=== PATIENT | female | born 1990 | race Caucasian/White ===

== ENCOUNTER → 2017-01-01 | Outpatient (CLI) | payer BC ==
[~2017-01-01] MED LIST: ACET-1256 PO; CETI10TA84 PO; FRRS300 PO; GADAVIST IV PRN; PRENTAB26 PO
--- NOTE | 2017-01-01 10:56 | DIAGNOSTIC IMAGING REPORT ---
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 COMPARISON STUDY: None. FINDINGS: There are no areas of restricted diffusion to suggest acute infarction. The midline structures are intact. A few small retention cysts within the left maxillary sinus. The ventricles and sulci are within normal limits for age. There is no mass, hematoma, midline shift. The major vascular flow-voids at the skull base are well maintained. Postcontrast sequences show no areas of abnormal enhancement. Normal bilateral internal auditory canals. The right mastoid air cells are clear. No evidence for inner ear dysplasia. The 7th and 8th cranial nerves are normal and course and caliber. There is complete opacification of the left mastoid air cells and left middle ear cavity. These are filled with fluid. There is associated enhancement. No bony destruction by MRI. There is no extension into the intracranial location. No surrounding soft tissue edema. IMPRESSION: 1. No acute intracranial abnormality. 2. Normal bilateral internal auditory canals. 3. Complete opacification of the left mastoid air cells and left middle ear cavity which are fluid-filled. These also demonstrate enhancement. Therefore, this favors an otitis media with associated mastoid effusion. The mastoid effusion raises the possibility of a non-coalescing mastoiditis given the lack of bony erosion and surrounding inflammatory change. In addition, an underlying cholesteatoma could also result in a similar appearance. Clinical correlation recommended. Electronically signed by: Ted Steward M.D. 01/01/2017 10:54 AM Dictated Date/Time: 01/01/2017 10:39 AM
== END | disposition home or self-care (01) ==
LOC: C.MRI 09:34
PROVIDERS: ATTEND Physician Assistant
DX: H90.72 Mixed conductive and sensorineural hearing loss, unilateral, left ear, with unrestricted hearing on the contralateral side (principal); R93.0 Abnormal findings on diagnostic imaging of skull and head, not elsewhere classified

== ENCOUNTER → 2018-04-29 | Outpatient (CLI) | payer OTHER ==
[~2018-04-29] MED LIST changes: -GADAVIST IV PRN
== END | disposition home or self-care (01) ==
LOC: C.LAB1850 09:16
PROVIDERS: ATTEND Obstetrics & Gynecology
DX: Z34.82 Encounter for supervision of other normal pregnancy, second trimester (principal)

== ENCOUNTER 2018-10-10 01:16 | Inpatient (IN) ==
[2018-10-10] MEDS ORDERED: OXYTOCIN 30 UNITS/500 ML BAG IV PRN ×2 (01:48→06:28)
[2018-10-10] MEDS ORDERED: LACTATED RINGER'S 1,000 ML IV PRN ×2 (01:48→03:09)
[2018-10-10] MEDS ORDERED: fentaNYL citrate 100 MCG/2 ML VIAL ONE (01:54)
[2018-10-10] MEDS ORDERED: ePHEDrine sulfate 50 MG/ML AMP ONE (01:54)
[2018-10-10] MEDS ORDERED: BUPIVACAINE 0.25% 30 ML VIAL ONE (01:54)
[2018-10-10] MEDS ORDERED: fentaNYL 2MCG/ML ROPIV 1.25MG/ML 100 ML BAG EPI ONE (01:55)
[2018-10-10] MEDS ORDERED: LACTATED RINGER'S 1,000 ML IV SCH (02:00)
[2018-10-10 02:54] LABS: Hematocrit (blood only) 36.5 % (37-47); Hemoglobin 12.5 g/dL (12.0-16.0); Mean Corpuscular Volume 88.6 fL (80-100); Mean Platelet Volume 10.1 fL (7.4-10.4); Platelet Count 196 K/uL (130-400); RDW Coefficient of Variation 13.3 % (11.5-14.5); Red Blood Count 4.12 M/uL (4.2-5.4); White Blood Count 16.37 K/uL (4.8-10.8)
[2018-10-10 02:56] LABS: Mean Corpuscular Hgb Conc 34.2 g/dL (32-36)
[2018-10-10] MEDS ORDERED: NALBUPHINE HCL INJ 10 MG/ML AMP IV PRN (03:09)
[2018-10-10] MEDS ORDERED: ONDANSETRON INJ 2 MG/ML 2 ML VIAL IV PRN (03:09)
[2018-10-10] MEDS ORDERED: fentaNYL 2MCG/ML ROPIV 1.25MG/ML 100 ML BAG EPI PRN (03:09)
[2018-10-10] MEDS ORDERED: NALOXONE HCL 0.4 MG/1 ML VIAL/CARP IV PRN (03:09)
[2018-10-10] MEDS ORDERED: NALOXONE HCL 1 MG in SODIUM CHLORIDE 0.9% 1000ML 1,000 ML IV PRN (03:09)
[2018-10-10] MEDS ORDERED: DiphenhydrAMINE HCL 50 MG/ML VIAL IV PRN (03:09)
[2018-10-10] MEDS ORDERED: ePHEDrine sulfate 50 MG/ML AMP IV PRN (03:09)
[2018-10-10] MEDS ORDERED: OXYCODONE/ACETAMINOPHEN 5mg/325mg TAB PO PRN (06:28)
[2018-10-10] MEDS ORDERED: SUPERCREAM 0.870% 15 GM JAR EXT PRN (06:28)
[2018-10-10] MEDS ORDERED: DIPHTHERIA/TETANUS/PERTUSSIS 0.5 ML SYR/VIAL IM ONE (06:28)
[2018-10-10] MEDS ORDERED: ACETAMINOPHEN 325 MG TAB PO PRN (06:28)
[2018-10-10] MEDS ORDERED: BENZOCAINE 20% AER SPR 82.5 GM CAN EXT PRN (06:28)
[2018-10-10] MEDS ORDERED: HYDROCORTISONE ACETATE 25 MG SUPP PR PRN (06:28)
[2018-10-10] MEDS ORDERED: BISACODYL 10 MG SUPP PR PRN (06:28)
[2018-10-10 06:53] LABS: Base Excess Cord Arterial Bld 0.3 mEq/L (-9-1.8); CO2 Cord Arterial Blood 51 mmHg (39.1-73.5); HCO3 Cord Arterial Blood 27 mmol/L (19.7-28.5); pH Cord Arterial Blood 7.34 (7.1-7.38)
[2018-10-10 06:57] LABS: Cord Venous Blood HCO3 26 mmol/L (18.4-26.8); Cord Venous Blood PCO2 47 mmHg (30.4-57.2); Cord Venous Blood PO2 33 mmHg (14.1-43.3); Cord Venous Blood pH 7.36 (7.20-7.44)
--- NOTE | 2018-10-10 07:16 | Delivery Summary ---
DATE OF OPERATION: 10/10/2018 VAGINAL DELIVERY NOTE Trinity presented in active labor at 6 cm, group B strep negative, second baby, uncomplicated . heart rate category 1 requested epidural. She then progressed to fully dilated. AROM was performed for clear fluid. She pushed over a few contractions and delivered a baby in occiput anterior position. Mouth and then nares suctioned. Baby delivered by gentle traction, no excessive force. Live vigorous female infant. Cord clamped and cut. Cord gases obtained. Cord blood obtained. Placenta removed with traction and IV Pitocin started for uterine tone. Second-degree tear repaired with 3-0 Vicryl. Sponge and instrument counts correct. Bleeding minimal at the end of delivery, rectal exam negative for sutures or defects. I attest to the content of the Intraoperative Record and any orders documented therein. Any exception s are noted below.
[2018-10-10] MEDS: PRENATAL VITAMIN 1 TAB PO SCH (08:13)
[2018-10-10] MEDS: DOCUSATE SODIUM 100 MG CAP PO SCH ×2 (08:13→22:06)
[2018-10-10] MEDS: CALCIUM CARBONATE 500 MG CHEWABLE TAB PO SCH ×2 (08:13→22:06)
--- NOTE | 2018-10-10 08:21 | Anesthesia Procedure Note ---
Date of Service October 10, 2018 Anesthesia Post Epidural Note Vital Signs Vital Signs: Temp Pulse Resp BP Pulse Ox 10/10/18 08:11 81 101/64 10/10/18 08:10 20 10/10/18 07:56 80 101/58 L 10/10/18 07:40 88 20 106/57 L 10/10/18 07:25 67 20 101/56 L 10/10/18 07:10 70 20 112/58 L 10/10/18 06:55 74 20 107/58 L 10/10/18 06:40 78 113/60 10/10/18 06:25 82 18 116/61 10/10/18 06:22 73 100 10/10/18 06:17 84 99 10/10/18 06:12 111 H 74 L 10/10/18 06:11 112 H 122/64 10/10/18 06:08 108 H 81 L 10/10/18 06:07 93 H 99 10/10/18 06:02 84 100 10/10/18 05:57 80 100 10/10/18 05:56 71 102/64 10/10/18 05:52 73 100 10/10/18 05:47 74 100 10/10/18 05:42 76 100 10/10/18 05:41 68 96/56 L 10/10/18 05:37 70 100 10/10/18 05:32 81 100 10/10/18 05:27 69 100 10/10/18 05:25 70 110/64 10/10/18 05:22 80 100 10/10/18 05:19 18 10/10/18 05:17 76 100 10/10/18 05:12 94 H 110/58 L 100 10/10/18 05:07 77 100 10/10/18 05:02 73 100 10/10/18 04:58 77 105/61 10/10/18 04:57 75 100 10/10/18 04:52 65 100 10/10/18 04:47 86 98 10/10/18 04:42 72 99 10/10/18 04:40 68 99/58 L 10/10/18 04:37 61 99 10/10/18 04:32 59 L 18 97 10/10/18 04:28 61 98/56 L 10/10/18 04:27 61 99 10/10/18 04:22 57 L 98 10/10/18 04:17 69 99 10/10/18 04:12 70 100 10/10/18 04:10 73 100/59 L 10/10/18 04:07 70 98 10/10/18 04:02 66 99 10/10/18 04:01 18 10/10/18 03:57 59 L 97 10/10/18 03:55 66 106/63 10/10/18 03:52 63 98 10/10/18 03:47 59 L 98 10/10/18 03:42 72 99 10/10/18 03:40 75 98/60 L 10/10/18 03:37 67 97 10/10/18 03:32 67 18 98 10/10/18 03:27 68 100 10/10/18 03:26 71 103/60 10/10/18 03:22 102 H 100 10/10/18 03:20 18 10/10/18 03:17 79 99 10/10/18 03:15 97.5 F L 18 10/10/18 03:12 90 99 10/10/18 03:11 77 110/62 10/10/18 03:08 93 H 18 92/54 L 10/10/18 03:07 96 H 100 10/10/18 03:02 96 H 99 10/10/18 03:00 81 18 106/64 10/10/18 02:58 80 102/59 L 10/10/18 02:57 80 99 10/10/18 02:56 81 106/64 10/10/18 02:54 81 105/62 10/10/18 02:52 75 103/58 L 100 10/10/18 02:51 80 107/61 10/10/18 02:50 18 10/10/18 02:48 93 H 113/75 10/10/18 02:47 83 100 10/10/18 02:46 81 18 114/73 10/10/18 02:42 83 99 10/10/18 02:37 85 99 10/10/18 02:36 90 18 93 10/10/18 02:32 81 100 10/10/18 02:27 77 100 10/10/18 02:22 72 99 10/10/18 02:17 65 97 10/10/18 01:57 75 108/65 10/10/18 01:30 98.2 F 18 10/10/18 01:27 98.4 F 18 Notes Mental Status: alert / awake / arousable and participated in evaluation Patient Amnestic to Procedure: Yes Nausea / Vomiting: adequately controlled Pain: adequately controlled Airway Patency, RR, SpO2: stable & adequate BP & HR: stable & adequate Hydration State: stable & adequate Neuraxial Anesthesia: was administered and sensory block is resolving Anesthetic Complications: no major complications apparent and Pt Satisfied with anesthetic care Epidural: Removed without complications and With tip intact
[2018-10-10] MEDS ORDERED: PRENATAL VIT IRON FUM FOLIC AC PO SCH (09:00)
[2018-10-10] MEDS: IBUPROFEN 600 MG TAB PO PRN ×3 (11:52→22:15)
[2018-10-10] MEDS ORDERED: COUGH DROP (SUGAR FREE) LOZ 24 LOZ/1 BOX BUCCAL ONE (22:12)
[2018-10-10] MEDS ORDERED: GUAIFENESIN/CODEINE 200MG/20MG 10ML UDC PO PRN (22:20)
[2018-10-11] MEDS: GUAIFENESIN/CODEINE 100MG/10MG 5ML UDC PO PRN ×4 (00:10→21:41)
--- NOTE | 2018-10-11 06:10 | Obstetrical Progress Note ---
Date of Service <Loco Hassan MD - Last Filed: 10/11/18 06:10> October 11, 2018 Assessment & Plan <Loco Hassan MD - Last Filed: 10/11/18 06:10> (1) Normal vaginal delivery: Trinity is a 28yo who presented in active labor now s/p with AROM PPD#1 - GBS-, Rh positive, RI - Feels well today. Eating well, voiding well, ambulating well. - without difficulty - Pain well controlled with ibuprofen 600mg Q4H PRN. - Routine post-partrum care - After discharge will have [address] Green (2) 39 weeks gestation of : Subjective <Loco Hassan MD - Last Filed: 10/11/18 06:10> Ambulation: ambulating normally Voiding: no voiding problems Passing Gas:: Yes Diet Tolerance:: regular diet Lochia:: Moderate Feeding Type:: breast feeding Current Pain Level(1-10): 5 (improved to 1/10 with motrin ) Review of Systems Denies fever, chills, sweats Denies shortness of breath, difficulty breathing, chest pain, palpitations, chest pressure. Denies breast pain. Denies dysuria. Denies headache. Physical Exam <Loco Hassan MD - Last Filed: 10/11/18 06:10> Vital Signs (Past 24 Hours) Last Vital Signs Temp 36.4 C L 10/11/18 04:30 Pulse 61 10/11/18 04:30 Resp 16 10/11/18 04:30 BP 102/62 10/11/18 04:30 Pulse Ox 97 10/11/18 04:30 General: Alert, oriented. No acute distress. Cardiac: Regular rate and rhythm, no murmurs/rubs/gallops. Respiratory: Clear to auscultation anterior and posteriorly, no wheezes/rales/ rhonchi. No increased work of breathing. Symmetrical chest rise. No respiratory distress. Abdomen: Soft, nontender, nondistended. Bowel sounds present. Uterus: Uterine fundus firm, palpable 2-3cm below umbilicus. Lower Extremities: No lower extremity edema or swelling. No deep calf pain. Antonio's negative bilaterally. <Marky Yoder Jr, MD, FACOG - Last Filed: 10/11/18 07:24> Co-Signing Physician Notes Resident Physician Supervision Note: I was present with Dr. Ayoub during the history and exam. I discussed the case with the resident and agree with the findings and plan as documented in the note. Any exceptions or clarifications are listed here: [None] Documented By: Marky Yoder Jr, MD, FACOG Resident Activity Tracking <Loco Hassan MD - Last Filed: 10/11/18 06:10> Resident Involvement: Resident Care Provided Care Provided: Adult Hospital Medicine
[2018-10-11 07:07] LABS: Hematocrit (blood only) 33.4 % (37-47); Hemoglobin 11.3 g/dL (12.0-16.0); Mean Corpuscular Hgb Conc 33.8 g/dL (32-36); Mean Corpuscular Volume 89.8 fL (80-100); Mean Platelet Volume 10.2 fL (7.4-10.4); Platelet Count 191 K/uL (130-400); RDW Coefficient of Variation 13.5 % (11.5-14.5); RDW Standard Deviation 44.1 fL (36.4-46.3); Red Blood Count 3.72 M/uL (4.2-5.4); White Blood Count 12.07 K/uL (4.8-10.8)
[2018-10-11] MEDS: PRENATAL VITAMIN 1 TAB PO SCH (09:24)
[2018-10-11] MEDS: DOCUSATE SODIUM 100 MG CAP PO SCH ×2 (09:24→20:50)
[2018-10-11] MEDS: IBUPROFEN 600 MG TAB PO PRN ×4 (09:24→20:50)
[2018-10-11] MEDS: CALCIUM CARBONATE 500 MG CHEWABLE TAB PO SCH ×2 (09:24→18:29)
[2018-10-11] MEDS ORDERED: BISACODYL 5 MG TABEC PO SCH (20:00)
[2018-10-12] MEDS: IBUPROFEN 600 MG TAB PO PRN ×2 (00:37→08:08)
--- NOTE | 2018-10-12 06:17 | Obstetrical Progress Note ---
Date of Service <Loco Hassan MD - Last Filed: 10/12/18 06:17> October 12, 2018 Assessment & Plan <Loco Hassan MD - Last Filed: 10/12/18 06:17> (1) Normal vaginal delivery: Trinity is a 28yo who presented in active labor now s/p with AROM PPD#2 - GBS-, Rh positive, RI - Feels well today. Eating well, voiding well, ambulating well. - without difficulty - Pain well controlled with ibuprofen 600mg Q4H PRN. - Routine post-partrum care - After discharge will have [address] Green (2) 39 weeks gestation of : Subjective <Loco Hassan MD - Last Filed: 10/12/18 06:17> Ambulation: ambulating normally Voiding: no voiding problems Passing Gas:: Yes Diet Tolerance:: regular diet Lochia:: Small Feeding Type:: breast feeding Current Pain Level(1-10): 1 Review of Systems Denies fever, chills, sweats Denies shortness of breath, difficulty breathing, chest pain, palpitations, chest pressure. Denies breast pain. Denies dysuria. Denies headache. Physical Exam <Loco Hassan MD - Last Filed: 10/12/18 06:17> Vital Signs (Past 24 Hours) Last Vital Signs Temp 36.6 C 10/12/18 00:40 Pulse 71 10/12/18 00:40 Resp 16 10/12/18 00:40 BP 116/74 10/12/18 00:40 Pulse Ox 97 10/12/18 00:40 General: Alert, oriented. No acute distress. Cardiac: Regular rate and rhythm, no murmurs/rubs/gallops. Respiratory: Clear to auscultation anterior and posteriorly, no wheezes/rales/ rhonchi. No increased work of breathing. Symmetrical chest rise. No respiratory distress. Abdomen: Soft, nontender, nondistended. Bowel sounds present. Uterus: Uterine fundus firm, palpable 3cm below umbilicus. Lower Extremities: No lower extremity edema or swelling. No deep calf pain. Antonio's negative bilaterally. <Alise Delarosa MD - Last Filed: 10/12/18 07:41> Co-Signing Physician Notes I have examined the patient and agree with the resident note above. Resident Activity Tracking <Loco Hassan MD - Last Filed: 10/12/18 06:17> Resident Involvement: Resident Care Provided Care Provided: Adult Hospital Medicine
[2018-10-12 07:26] LABS: Hematocrit (blood only) 35.3 % (37-47); Hemoglobin 11.7 g/dL (12.0-16.0)
[2018-10-12] MEDS: PRENATAL VITAMIN 1 TAB PO SCH (08:08)
[2018-10-12] MEDS: DOCUSATE SODIUM 100 MG CAP PO SCH (08:08)
[2018-10-12] MEDS: CALCIUM CARBONATE 500 MG CHEWABLE TAB PO SCH (10:39)
== END 2018-10-12 12:10 | disposition home or self-care (01) | DRG 807 ==
LOC: OPB 01:16 → 4S1 01:19 → 4S2 13:04